=== PATIENT | female | born 1960 | race African-American/Black ===

== ENCOUNTER → 2017-01-08 | Outpatient (CLI) | payer OTHER ==
[2016-03-19 19:40] VITALS: BP 143/93
[~2017-01-08] MED LIST: ATOR10TA60; CELE400C10; CIPR500T; GABA300C8; HYDR-971 PO; HYDR25TA9; IOHEXOL 240 MG/ML 50ML VIAL. PO ONE; IOHEXOL 300 MG/ML 100ML VIAL. IV ONE; LISI1TAB5; LOVA40TA2; OXYC10TA; OXYC15TA60; OXYC1TAB7; OXYC1TAB9; OXYC30TA64; OXYC40TA21; POLY255P; TIZA4TAB
--- NOTE | 2017-01-08 10:55 | KCIC ---
PROCEDURE CT of the abdomen with and without contrast HISTORY Left upper quadrant pain for 3 months. TECHNIQUE 100 cc Omnipaque 300 intravenous contrast. Oral contrast. Scans obtained before and after intravenous contrast. Exposure: One or more of the following individualized dose reduction techniques were utilized for this exam: 1. Automated exposure control. 2. Adjustment of the mA and/or kV according to patient size. 3. Use of iterative reconstruction technique. COMPARISON None FINDINGS Lung bases are clear. Liver unremarkable. Spleen unremarkable. Pancreas unremarkable. No evidence of adrenal mass. Tiny low-density lesion at the medial aspect of the left kidney may represent a tiny subcentimeter cyst. Surgical clips in the gallbladder fossa. The abdominal aorta is non aneurysmal. There is moderate retained stool in the visualized colon. Visualized bowel loops are not distended. There is no evidence of abdominal ascites or localized inflammatory process. At the probable L4-L5 and L5-S1 levels, there is facet joint osteoarthritis with anterolisthesis of L4 on L5 and L5 on S1. IMPRESSION 1. No acute findings in the abdomen. 2. Constipation. 3. Degenerative changes at the lower lumbar spine. Electronically signed by: Russell Ward MD (Jan 08, 2017 10:53:42)
== END | disposition home or self-care (01) ==
LOC: KCIC CT 09:11
PROVIDERS: ATTEND Nurse Practitioner Family
DX: R10.12 Left upper quadrant pain (principal); K59.00 Constipation, unspecified; M51.36 Other intervertebral disc degeneration, lumbar region
CPT/HCPCS: 74170; Q9966; Q9967

== ENCOUNTER → 2017-01-15 | Outpatient (CLI) | payer OTHER ==
[2016-03-19 19:40] VITALS: BP 143/93
[~2017-01-15] MED LIST changes: -IOHEXOL 240 MG/ML 50ML VIAL. PO ONE; -IOHEXOL 300 MG/ML 100ML VIAL. IV ONE
--- NOTE | 2017-01-15 12:15 | RAD ---
MRI of the abdomen without contrast to include a MRCP 01/15/2017 Clinical history: Left upper quadrant abdominal pain. Technique: Unenhanced T2-weighted, fat-saturated T2-weighted axial and coronal and in and out of phase T1-weighted axial images of the abdomen were obtained. Fat saturated T2-weighted thin section coronal images of the abdomen were obtained. Multiplanar 3-D MIP reconstructed images of the biliary system were generated for an MRCP. Findings: Comparison is made to the patient's CT scan of the abdomen dated 01/08/2017. The liver, pancreas and adrenal glands are within normal limits. A 3 mm rounded area of increased signal intensity is seen involving the inferior aspect of the spleen on the T2-weighted images. This likely represents a cyst. Several rounded high signal intensity lesions are seen scattered throughout both kidneys on the T2-weighted images. These measure 3 to 7 mm in size and likely represent cysts. The abdominal aorta tapers normally. No free fluid is seen within the abdomen. There is no evidence of bowel obstruction. On the T2-weighted coronal images a rounded high signal intensity lesion is seen in the right adnexa which measures 3.9 cm in greatest diameter on the T2-weighted images. It is not completely visualized on the study. It likely represent a right ovarian cyst. Minimal S shaped curvature of the thoracolumbar spine is seen. MRCP images demonstrate nonvisualization of the gallbladder consistent with a cholecystectomy. The left and right hepatic ducts and their branches, common hepatic duct and common bile duct are normal in caliber. The main pancreatic duct is within normal limits. No filling defect is seen. Impression: 1. Status post cholecystectomy. 2. Otherwise negative MRCP. 3. 3.9 cm probable right ovarian cyst which is incompletely evaluated on this study.
--- NOTE | 2017-01-15 17:08 | RAD ---
Chest, 2 views, 01/15/2017: History: Chest pain Comparison is made to a study from 12/12/2009. The heart size and pulmonary vascularity are normal. No pulmonary infiltrates are seen. There is no evidence of pleural fluid. There is a mild thoracic scoliosis. IMPRESSION: No acute cardiopulmonary abnormality is detected.
== END | disposition home or self-care (01) ==
LOC: MRI 09:00
PROVIDERS: ATTEND Internal Medicine Gastroenterology
DX: R10.12 Left upper quadrant pain (principal); R07.9 Chest pain, unspecified; R10.13 Epigastric pain
CPT/HCPCS: 71020; 74181

== ENCOUNTER 2017-06-01 12:56 | Emergency (ER) | payer OTHER ==
[~2017-06-01] VITALS: Ht 165.1 cm; Wt 81.6 kg
[2017-06-01 13:10] VITALS: BP 147/83
--- NOTE | 2017-06-01 13:56 | PHYS DOC ---
Past Medical History Past Medical History: Anxiety, Arthritis, Hypertension Additional Past Medical Histor: CHRONIC BACK PAIN, DEGENERATIVE DISC, NEUROPATHY, CARPAL TUNNEL Past Surgical History: Cholecystectomy, Tonsillectomy Alcohol Use: None Drug Use: None Adult General Chief Complaint Chief Complaint: LOWER EXT PAIN HPI HPI Patient is a 56 year old female who is here for pain symptoms in her right calf. She states that since been going on for approximately one month but has worsened over the past few days. She states that she has a feeling of numbness to her skin and pain underneath the skin. She denies any injury. She denies any other pain to her back, hips, or pain shooting down her leg. Review of Systems Review of Systems Constitutional: Denies fever or chills [] Respiratory: Denies cough or shortness of breath [] Cardiovascular: No additional information not addressed in HPI [] GI: Denies abdominal pain, nausea, vomiting, bloody stools or diarrhea [] : Denies dysuria or hematuria [] Musculoskeletal: See history of present illness Integument: Denies rash or skin lesions [] Neurologic: Denies headache, focal weakness or sensory changes [] Endocrine: Denies polyuria or polydipsia [] Current Medications Current Medications Current Medications Medications (Trade) Dose Ordered Sig/Abbey Start Time Stop Time Status Last Admin Dose Admin Acetaminophen/ Hydrocodone Bitart (Lortab 10/325) 1 tab 1X ONCE 06/01/17 14:15 06/01/17 14:16 DC 06/01/17 14:18 1 TAB Allergies Allergies Allergies Coded Allergies Type Severity Reaction Last Updated Verified acetaminophen Allergy Intermediate PER PATIENT "MY SKIN PONCE" 12/11/14 No codeine Allergy Intermediate PER PATIENT "MY SKIN PONCE" 12/11/14 No Physical Exam Physical Exam Constitutional: Well developed, well nourished, no acute distress, non-toxic appearance. [] Cardiovascular:Heart rate regular rhythm, no murmur [] Lungs & Thorax: Bilateral breath sounds clear to auscultation [] Skin: Warm, dry, no erythema, no rash. [] Back: No tenderness, no CVA tenderness. [] Extremities:no cyanosis, no clubbing, ROM intact, no edema, pulses are intact, sensation is intact, patient complains of pain to the right calf midway between the and ankle, the pain seems more generalized with no point tenderness. Neurologic: Alert and oriented X 3, normal motor function, normal sensory function, no focal deficits noted. [] Psychologic: Affect normal, judgement normal, mood normal. [] Current Patient Data Vital Signs Vital Signs Date Time Temp Pulse Resp B/P (MAP) Pulse Ox O2 Delivery O2 Flow Rate FiO2 06/01/17 13:10 97.8 88 18 98 Room Air 97.8 EKG EKG [] Radiology/Procedures Radiology/Procedures []PATIENT: GAGAN CHAVEZ ACCOUNT: [id number] : 1960 LOCATION: ER AGE: 56 SEX: F EXAM STATUS: REG ER ORD. PHYSICIAN: KEIRA SALMERON APRN REASON: severe pain with no injury PROCEDURE: VENOUS LOWER EXTREMITY RIGHT Right lower extremity venous Doppler ultrasound exam HISTORY:severe pain with no injury COMPARISON: None FINDINGS: Multiple grayscale and color images and spectral analysis waveform images were acquired of the right lower extremity veins to evaluate for the presence of DVT. Normal compression, color-flow, and augmentation is demonstrated from the right common femoral to the popliteal veins. There is normal phasicity. There is normal color flow of the proximal profunda femoris and greater saphenous veins. There is normal color flow in segments of calf veins. Impression: 1. There is no evidence of deep venous thrombosis from the right common femoral to popliteal veins. DICTATED and SIGNED BY: PEPE HARRIS MD DATE: 06/01/17 1435 CC: DU SINGH; KEIRA SALMERON APRN ~ Course & Med Decision Making Course & Med Decision Making Pertinent Labs and Imaging studies reviewed. (See chart for details) [] 1. Right leg pain The patient is to take the pain medication that she already has a supply of at home. She is to follow-up with her nurse practitioner on Saturday for further evaluation of this pain. I explained that we do have limited testing in the emergency department if this is suspected to be a nerve problem. She is to return to the ED if worsening. Dragon Disclaimer Dragon Disclaimer This electronic medical record was generated, in whole or in part, using a voice recognition dictation system. Departure Departure Referrals: DU SINGH (PCP) KEIRA SALMERON [employer]ACHINE Jun 01, 2017 13:56
[2017-06-01] MEDS ORDERED: HYDROcodone/APAP 10/325 1 TAB TABLET PO ONE (14:15)
--- NOTE | 2017-06-01 14:38 | RAD ---
Right lower extremity venous Doppler ultrasound exam HISTORY:severe pain with no injury COMPARISON: None FINDINGS: Multiple grayscale and color images and spectral analysis waveform images were acquired of the right lower extremity veins to evaluate for the presence of DVT. Normal compression, color-flow, and augmentation is demonstrated from the right common femoral to the popliteal veins. There is normal phasicity. There is normal color flow of the proximal profunda femoris and greater saphenous veins. There is normal color flow in segments of calf veins. Impression: 1. There is no evidence of deep venous thrombosis from the right common femoral to popliteal veins.
== END 2017-06-01 15:41 | disposition home or self-care (01) ==
LOC: ER 12:56
DX: M79.661 Pain in right lower leg (principal); R20.0 Anesthesia of skin; I10 Essential (primary) hypertension; M19.90 Unspecified osteoarthritis, unspecified site; G89.29 Other chronic pain; G56.00 Carpal tunnel syndrome, unspecified upper limb; Z90.49 Acquired absence of other specified parts of digestive tract; Z88.6 Allergy status to analgesic agent; Z88.5 Allergy status to narcotic agent
CPT/HCPCS: 93971; 99284-25

== ENCOUNTER → 2017-06-04 | Day surgery (SDC) | payer OTHER ==
[~2017-06-04] MED LIST changes: +IV RINGERS,LACTATED 1000ML 1,000 ML IV SCH; +PROPOFOL 20 ML IV ONE
[2017-06-04 17:35] VITALS: BP 105/69
[2017-06-04 18:21] LABS: FREE T4 0.99 ng/dL (0.76-1.46)
--- NOTE | 2017-06-04 19:55 | HP ---
ADMIT DATE: 06/04/2017 REASON FOR CONSULTATION: Left upper quadrant abdominal pain and rectal bleeding. HISTORY OF PRESENT ILLNESS: A 56-year-old -[place] female whose past medical history is significant for osteoarthrosis, hyperlipidemia, hypertension, came with persistent rectal bleeding with defecation. There has been no change in weight or appetite. There has been some left upper quadrant and lower chest pain ____. Previously had colonoscopy apparently in early 2014, which did reveal diverticular disease at that time. With continued symptoms, she requests additional evaluation. PAST MEDICAL HISTORY: Tobaccoism, arthritis, hyperlipidemia, hypertension. ALLERGIES: ACETAMINOPHEN, CODEINE. SOCIAL HISTORY: She is a smoker, social drinker. She is status post tonsillectomy, cholecystectomy, adenoidectomy. FAMILY HISTORY: Diabetes in mother, hypertension in mother ____ REVIEW OF SYSTEMS: Per records. MEDICATIONS: Include gabapentin, lisinopril, hydrochlorothiazide, oxycodone, tizanidine. PHYSICAL EXAMINATION: VITAL SIGNS: Temperature is 98.2, pulse 120, respirations 18. HEENT: Normocephalic, atraumatic head. Pupils and extraocular movements not tested. Sclerae anicteric. NECK: Supple. LUNGS: Clear anteriorly. CARDIOVASCULAR: Reveals S1, S2 without S3, S4, or appreciable murmur. ABDOMEN: Reveals a soft abdomen with left upper quadrant abdominal pain and discomfort to palpation in the office. EXTREMITIES: Reveals no cyanosis, clubbing, or edema. IMPRESSION: Left upper quadrant pain and rectal bleeding, etiology is to be determined. Differential includes ulcers, malignancy, inflammatory bowel disease, colonic polyps, ischemic colitis among others; therefore, recommend upper endoscopy and colonoscopy to further assess symptoms. Risks and benefits have been previously discussed. The patient is willing to proceed. DILLON MURGUIA MD DR: AMARA/idalmis JOB#: [id number] / [id number]
== END | disposition home or self-care (01) ==
LOC: ENDOS 15:20
PROVIDERS: ATTEND Internal Medicine Gastroenterology
DX: K64.1 Second degree hemorrhoids (principal); K57.30 Diverticulosis of large intestine without perforation or abscess without bleeding; K29.50 Unspecified chronic gastritis without bleeding; E78.00 Pure hypercholesterolemia, unspecified; I10 Essential (primary) hypertension; M19.91 Primary osteoarthritis, unspecified site; Z90.49 Acquired absence of other specified parts of digestive tract; Z72.0 Tobacco use; Z87.39 Personal history of other diseases of the musculoskeletal system and connective tissue; Z88.6 Allergy status to analgesic agent
CPT/HCPCS: 36415; 43235; 45378; 84439; 84443; J2704